=== PATIENT | female | born 1965 | race Caucasian/White ===

== ENCOUNTER → 2020-07-23 10:27 | Outpatient (CLI) | payer OTHER, SELFPAY ==
--- NOTE | ~2020-07-23 | CT_ITS ---
EXAMINATION: CT abdomen pelvis w con DATE: 07/23/2020 11:04 INDICATION: Left lower quadrant abdominal pain TECHNIQUE: Computed tomography (CT) of the abdomen and pelvis was performed with 100 cc Omnipaque 350 intravenous contrast. Automated exposure control and iterative reconstruction technique were employe d. Exam dose: 1056.64 mGy-cm total exam DLP. COMPARISON: None. FINDINGS: Small bilateral fat-containing foramen of Bochdalek hernias. The lung bases are clear of in filtrate or consolidation. Normal heart size. No pericardial or pleural effusion. The liver, gallbladder, bile ducts, pancreas, pancreatic duct and spleen are unremarkable. Normal morphology of the adrenal glands. 8 mm upper pole right renal cyst. The kidneys are otherwise unremarkable. No urinary tract calculus o r hydroureteronephrosis. The urinary bladder, uterus and adnexal areas are unremarkable. Normal caliber of the abdominal aorta. No intraperitoneal or retroperitoneal or pelvic mass lesion or adenopathy or ascites. There are multiple diverticula of the sigmoid colon. There is a diverticulum of the hepatic flexure. There is mild focal soft tissue fat infiltration at the proximal sigmoid area which may represent min imal proximal left lower quadrant sigmoid diverticulitis. No bowel obstruction, bowel wall thickening, pneumatosis or intraperitoneal free air is noted. There is severe degenerative disc disease at L3-4 and L4-5, with minimal retrolisthesis at L4-5. Diffuse osteopenia. Mild chronic anterior wedging of T11. No suspicious osteolytic or osteoblastic lesions are noted. IMPRESSION: Minimal proximal sigmoid diverticulitis is suggested. Diverticulosis sigmoid colon and hepatic flexure 8 mm right renal cyst Reviewed, dictated and finalized at [facility]. Reviewed, dictated and finalized at [facility]. [employer]
[2020-07-23 10:54] LABS: Estimated Glomerular Filt Rate > 60
== END ==
PROVIDERS: PCP Family Medicine; Visit Provider Physician Assistant
DX: R10.32 Left lower quadrant pain (principal); Z87.19 Personal history of other diseases of the digestive system; N28.1 Cyst of kidney, acquired; K57.30 Diverticulosis of large intestine without perforation or abscess without bleeding
CPT/HCPCS: 74177; Q9967